=== PATIENT | female | born 1990 | race Caucasian/White ===

== ENCOUNTER 2018-02-11 17:49 | Emergency (ER) | payer OTHER ==
[~2018-02-11] VITALS: Ht 175.3 cm; Wt 96.0 kg
[~2018-02-11 17:49] MED LIST: KEFLEX500 MG PO; LORTAB 5-325 M1 EACH PO; MOBIC7.5 MG PO; MOTRIN800 MG PO; NAPROSYN500 MG PO; NORCO 7.5/321 TABLET PO; PYRIDIUM200 MG PO; TRAMADOL HCL50 MG PO; ULTRAM50 MG PO
[2018-02-11 18:53] LABS: HEMATOCRIT 40.8 % (36.0-46.0); HEMOGLOBIN 14.5 G/DL (11.9-15.5); MCH 32.6 PG (29.0-34.0); MCHC 35.5 G/DL (30.0-36.0); MCV 91.7 FL (83-99); PLATELET COUNT 149 K/uL (156-360); RBC DIS.WIDTH-CV 12.1 % (11.8-14.6); RBC DIS.WIDTH-SD 41.1 % (39-53); RED BLOOD COUNT 4.45 M/uL (3.80-5.20); WHITE BLOOD COUNT 4.7 K/uL (4.1-10.2)
[2018-02-11 18:57] LABS: APPEARANCE SL.HAZY ((CLEAR)); BILIRUBIN NEGATIVE; BLOOD SMALL; COLOR AMBER ((YELLOW)); GLUCOSE (STRIP) NEGATIVE; KETONES NEGATIVE; LEUKOCYTES NEGATIVE; NITRITE NEGATIVE; PROTEIN (STRIP) NEGATIVE; SPECIFIC GRAVITY 1.031 (1.000-1.030)
[2018-02-11 19:03] LABS: CHLORIDE 101 mEq/L (99-109); POTASSIUM 3.7 mEq/L (3.7-5.4); SODIUM 136 mEq/L (136-147)
[2018-02-11 19:05] LABS: GLUCOSE 100 mg/dL (70-99); TOTAL PROTEIN 7.1 g/dL (6.4-8.3)
[2018-02-11 19:07] LABS: TOTAL BILIRUBIN 0.7 mg/dL (0.0-1.0)
[2018-02-11 19:09] LABS: ALKALINE PHOSPHATASE 64 IU/L (3-129); CREATININE 0.8 mg/dL (0.6-1.3)
[2018-02-11 19:10] LABS: GFR ESTIMATE (CALCULATED) > 59 mL/min/; UREA NITROGEN (BUN) 12 mg/dL (9-23)
[2018-02-11 19:11] LABS: AST (GOT) 20 IU/L (2-34)
[2018-02-11 19:12] LABS: ALT (GPT) 21 IU/L (3-49); LIPASE 12 U/L (1.0-51.0)
[2018-02-11 19:16] LABS: BACTERIA NONE SEEN /HPF; EPITHELIAL CELLS 1+ /HPF; MUCUS 2+ /LPF; UCUL ADDED? NO; WHITE BLOOD CELLS 0-5 /HPF (0-5)
[2018-02-11 19:20] LABS: QUANTITATIVE HCG < 4.0 MIU/ML
[2018-02-11] MEDS ORDERED: KEFLEX500 MG PO (19:59)
[2018-02-11] MEDS ORDERED: MOTRIN800 MG PO (19:59)
[2018-02-11 20:28] VITALS: BP 145/92
== END 2018-02-11 20:29 | disposition home or self-care (01) ==
LOC: EME 17:49 → EXP 17:49
DX: L03.316 Cellulitis of umbilicus (principal)
CPT/HCPCS: 80053; 81003; 83690; 84702; 85027; 99281; 99284